=== PATIENT | female | born 1945 | race African-American/Black ===

== ENCOUNTER 2016-08-11 17:17 | Emergency (ER) | payer MEDICARE ==
[~2016-08-11] VITALS: Ht 165.1 cm; Wt 86.2 kg
[~2016-08-11 17:17] MED LIST: AMLODIPINE BES2.5 MG ORAL; ASPIR 8181 MG ORAL
[2016-08-11 17:28] VITALS: BP 143/55
[2016-08-11] MEDS ORDERED: METOPROLOL TART25 MG ORAL (17:39)
[2016-08-11] MEDS ORDERED: LISINOPRIL5 MG ORAL (17:39)
[2016-08-11] MEDS ORDERED: HYDRALAZINE HCL10 MG ORAL (17:39)
[2016-08-11 18:20] LABS: BASOPHILS % (AUTO) 2.4 % (0.0-2.0); EOSINOPHILS % (AUTO) 3.8 % (0.0-3.0); LYMPHOCYTES % (AUTO) 49.2 % (20.0-45.0); MEAN CORPUSCULAR HEMOGLOBIN 28.9 PG (27.0-31.0); MEAN CORPUSCULAR HGB CONC 32.1 G/DL (32.0-36.0); MEAN CORPUSCULAR VOLUME 90 FL (80-99); MEAN PLATELET VOLUME 10.2 FL (6.5-10.1); MONOCYTES % (AUTO) 5.5 % (1.0-10.0); PLATELET COUNT 141 K/UL (150-450); RED BLOOD COUNT 4.83 M/UL (4.20-5.40); RED CELL DISTRIBUTION WIDTH 12.4 % (11.6-14.8); WHITE BLOOD COUNT 5.1 K/UL (4.8-10.8)
[2016-08-11 18:43] LABS: ALANINE AMINOTRANSFERASE 10 U/L (3-33); ALBUMIN/GLOBULIN RATIO 1.4 (1.0-2.7); ANION GAP 16 (5-15); ASPARTATE AMINO TRANSFERASE 20 U/L (5-40); CALCIUM 9.6 mg/dL (8.6-10.2); CARBON DIOXIDE 25 mEQ/L (20-30); CHLORIDE 104 mEQ/L (98-107); CREATININE 1.1 mg/dL (0.5-0.9); GLOMERULAR FILTRATION RATE 59.8 mL/min (>60); HEMOLYSIS 116; POTASSIUM 4.5 mEQ/L (3.4-4.9); SODIUM 145 mEQ/L (135-145); TOTAL PROTEIN 6.7 g/dL (6.6-8.7)
[2016-08-11 18:45] LABS: TROPONIN I < 0.30 ng/mL (<=0.30)
[2016-08-11 18:55] LABS: CKMB 2.2 ng/mL (< 3.8)
[2016-08-11 20:03] LABS: INR 1.1 (0.9-1.1); PROTHROMBIN TIME 10.8 SEC (9.30-11.50)
[2016-08-11 20:19] VITALS: BP 138/59
[2016-08-11 22:51] VITALS: BP 139/46
--- NOTE | 2016-08-11 23:51 | Emergency Room Report ---
History of Present Illness General Chief Complaint: Syncope Source: Patient Present Illness HPI Patient complains of intermittent episodes of lightheadedness and feeling she is going to pass out. The patient states that she has been evaluated for this at [facility] and underwent an AICD/pacer last year. She states that she continues to have the symptoms that prompted her to get evaluation and get the pacer. She states that she will feel lightheaded and like she was given pass out. She states that she also has intermittent palpitations. She was seen last month for this by her [facility] physician. She denies recent illness. She denies actual syncope. She denies fever or chills. She denies cough or congestion. She denies chest pain. She has no other complaints. Allergies: Coded Allergies: IODINE (Verified Allergy, Unknown, 08/11/16) Patient History Past Medical History: see triage record, HTN, arrhyth Past Surgical History: pacemaker Social History: Denies: alcohol use, drug use, smoking Reviewed Nursing Documentation: PMH: Agreed, PSxH: Agreed Nursing Documentation-PMH Hx Hypertension: Yes Review of Systems All Other Systems: negative except mentioned in HPI Physical Exam Vital Signs Date Time Temp Pulse Resp B/P Pulse Ox O2 Delivery O2 Flow Rate FiO2 08/11/16 17:11 64 16 135/67 98 Room Air 08/11/16 17:28 97.8 Sp02 EP Interpretation: reviewed, normal General Appearance: no apparent distress, alert, GCS 15, non-toxic Head: normocephalic, atraumatic Eyes: bilateral eye PERRL, bilateral eye normal inspection ENT: hearing grossly normal, normal pharynx, no angioedema, normal voice Neck: full range of motion, supple/symm/no masses Respiratory: chest non-tender, lungs clear, normal breath sounds, speaking full sentences Cardiovascular #1: regular rate, rhythm, no edema Gastrointestinal: normal bowel sounds, non tender, soft, non-distended, no guarding, no rebound Rectal: deferred Musculoskeletal: back normal, gait/station normal, normal range of motion, non- tender Neurologic: alert, oriented x3, responsive, motor strength/tone normal, sensory intact, speech normal Psychiatric: judgement/insight normal, memory normal, mood/affect normal, no suicidal/homicidal ideation Skin: normal color, no rash, warm/dry, well hydrated Medical Decision Making Diagnostic Impression: Primary Impression: Pre-syncope ER Course This patient presents with presyncope. She has a history of arrhythmia requiring a pacer/AICD. She has not been shocked. She continues to have episodes of presyncope. I discussed the case with [facility]. Apparently, she has been seen for this previously. She underwent a pacer interrogation last month. There were some runs of a rapid rate but none were pathologic. The patient had a negative workup here to include EKG, CBC, CMP and cardiac enzymes. I had planned on obtaining a pacer interrogation and discharging this patient home. However, [employer] was unable to come out to interrogate the pacer. Therefore , the patient was transferred to the [facility] facility for this. Labs Test 08/11/16 18:08 08/11/16 19:27 White Blood Count 5.1 K/UL (4.8-10.8) Red Blood Count 4.83 M/UL (4.20-5.40) Hemoglobin 14.0 G/DL (12.0-16.0) Hematocrit 43.5 % (37.0-47.0) Mean Corpuscular Volume 90 FL (80-99) Mean Corpuscular Hemoglobin 28.9 PG (27.0-31.0) Mean Corpuscular Hemoglobin Concent 32.1 G/DL (32.0-36.0) Red Cell Distribution Width 12.4 % (11.6-14.8) Platelet Count 141 K/UL (150-450) Mean Platelet Volume 10.2 FL (6.5-10.1) Neutrophils (%) (Auto) 39.0 % (45.0-75.0) Lymphocytes (%) (Auto) 49.2 % (20.0-45.0) Monocytes (%) (Auto) 5.5 % (1.0-10.0) Eosinophils (%) (Auto) 3.8 % (0.0-3.0) Basophils (%) (Auto) 2.4 % (0.0-2.0) Sodium Level 145 mEQ/L (135-145) Potassium Level 4.5 mEQ/L (3.4-4.9) Chloride Level 104 mEQ/L (98-107) Carbon Dioxide Level 25 mEQ/L (20-30) Anion Gap 16 (5-15) Blood Urea Nitrogen 13 mg/dL (7-23) Creatinine 1.1 mg/dL (0.5-0.9) Estimat Glomerular Filtration Rate 59.8 mL/min (>60) Glucose Level 97 mg/dL (74-106) Calcium Level 9.6 mg/dL (8.6-10.2) Total Bilirubin < 0.2 mg/dL (0.0-1.2) Aspartate Amino Transf (AST/SGOT) 20 U/L (5-40) Alanine Aminotransferase (ALT/SGPT) 10 U/L (3-33) Alkaline Phosphatase 79 U/L (35-104) Total Creatine Kinase 91 U/L (26-140) Creatine Kinase MB 2.2 ng/mL (< 3.8) Creatine Kinase MB Relative Index 2.4 Troponin I < 0.30 ng/mL (<=0.30) Total Protein 6.7 g/dL (6.6-8.7) Albumin 4.0 g/dL (3.5-5.2) Globulin 2.7 g/dL Albumin/Globulin Ratio 1.4 (1.0-2.7) Prothrombin Time 10.8 SEC (9.30-11.50) Prothromb Time International Ratio 1.1 (0.9-1.1) Activated Partial Thromboplast Time 25 SEC (23-33) EKG Diagnostic Results Rate: normal Rhythm: other ST Segments: no acute changes Other Impression Atrial paced w/ prolonged AV conduction Rhythm Strip Diag. Results EP Interpretation: yes Rate: 60 Rhythm: no PVC's Other Impression PVC's. Paced. Chest X-Ray Diagnostic Results EP Interpretation: Yes Findings: no consolidation, no effusion, no pneumothorax, no acute cardiopulmonary disease Number of Views: 1 Last Vital Signs Date Time Temp Pulse Resp B/P Pulse Ox O2 Delivery O2 Flow Rate FiO2 08/11/16 22:51 97.6 64 13 139/46 96 Room Air Disposition: XFER SHT-TRM HOSP Condition: Stable Referrals: NOT CHOSEN SAVANNA/,REFERRING (PCP) DARIELA COATES D.O. Aug 11, 2016 23:51
[2016-08-12 00:09] VITALS: BP 139/44
[2016-08-12 00:20] VITALS: BP 139/44
--- NOTE | 2016-08-12 11:32 | Diagnostic Imaging Report ---
Indication: Chest pain Technique: One view of the chest Comparison: none Findings: Lungs and pleural space is clear the heart size is normal. There is a left chest AICD Impression: No acute process
--- NOTE | 2016-08-14 14:32 | Cardiology Report ---
APPROVED REPORT EKG Measurement Heart [id number] Left ventricular hypertrophy with repolarization abnormality Abnormal ECG Electronic pacemaker with frequent A- pacing.
== END 2016-08-12 00:20 | disposition short-term general hospital (02) ==
LOC: EDBD 17:17 → EMR 18:21
DX: R42 Dizziness and giddiness (principal); I10 Essential (primary) hypertension; Z95.0 Presence of cardiac pacemaker
CPT/HCPCS: 36415; 71010; 80053; 82550; 82553; 84484; 85025; 85610; 85730; 93005; 96360; 96361